=== PATIENT | female | born 1955 | race African-American/Black ===

== ENCOUNTER 2017-02-19 22:02 | Emergency (ER) | payer MEDICARE, OTHER ==
[~2017-02-19] VITALS: Ht 170.2 cm; Wt 68.0 kg
[2017-02-19 22:40] VITALS: BP 162/109
[2017-02-19 23:15] VITALS: BP 113/61
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
== END 2017-02-19 23:33 | disposition left against medical advice (07) ==
LOC: EMR 23:28
DX: S09.8XXA Other specified injuries of head, initial encounter (principal); Y04.0XXA Assault by unarmed brawl or fight, initial encounter; Y92.89 Other specified places as the place of occurrence of the external cause; I10 Essential (primary) hypertension; J44.9 Chronic obstructive pulmonary disease, unspecified; R51 Headache; F17.200 Nicotine dependence, unspecified, uncomplicated
CPT/HCPCS: 99284